=== PATIENT | female | born 1955 | race Caucasian/White ===

== ENCOUNTER 2021-02-26 09:26 | Inpatient (IN) | payer OTHER ==
[~2021-02-26] VITALS: Ht 172.7 cm; Wt 78.0 kg
[~2021-02-26 09:26] MED LIST: AMLO-489 PO; BUPR-160 PO; CHOL200010 PO; CHON150C PO; DONE5TAB80 PO; GLUC1TAB22 PO; LANS30CA57 PO; MAGN400S25 PO; MAGN400T40 PO; OMEG100078 PO; RALO60TA13 PO
[2021-02-26] MEDS ORDERED: SODIUM CHLORIDE 0.9% 1,000 ML IV ONE (12:00)
[2021-02-26] MEDS ORDERED: KETOROLAC TROMETH 30 MG/ML 1ML VIAL IV ONE (12:00)
[2021-02-26 12:29] LABS: Albumin 4.5 g/dL (3.4-5.0); Calcium 9.6 mg/dL (8.5-10.1); Potassium 3.4 mmol/L (3.5-5.1)
[2021-02-26 12:33] LABS: BUN/Creatinine Ratio 16.5; Bilirubin, Total 0.7 mg/dL (0.2-1.0); INR 0.97 (0.9-1.15); Partial Thromboplastin Time 26.5 sec (23.6-33.0); Total Protein 7.8 g/dL (6.4-8.2)
[2021-02-26 12:41] LABS: Basophils # (auto) 0 10 ^3/uL (0-0.2); Basophils % (auto) 0.5 % (0.0-2.0); Eosinophils # (auto) 0.1 10 ^3/uL (0-0.8); Eosinophils % (auto) 1.4 % (0.0-7.0); Hematocrit 47.8 % (36.0-46.0); Lymphocytes # (auto) 1.3 10 ^3/uL (0.4-5.4); Lymphocytes % (auto) 12.1 % (10.0-50.0); Mean Corpuscular Hemoglobin 29.2 pg (28.0-32.0); Mean Corpuscular Hgb Conc. 33.5 g/dL (32.0-36.0); Monocytes # (auto) 0.6 10 ^3/uL (0-1.3); Monocytes % (auto) 6.2 % (0.0-12.0); Neutrophils # (auto) 8.3 10 ^3/uL (1.6-8.6); Neutrophils % (auto) 79.8 % (37.0-80.0); Red Blood Cells 5.49 10^6/uL (4.0-5.20); Red Cell Distribution Width 13.3 % (11.8-14.3); White Blood Cell 10.4 10^3/uL (4.4-10.8)
[2021-02-26 12:42] LABS: Nucleated Red Blood Cells % 0.1 %
[2021-02-26] MEDS ORDERED: POTASSIUM EFFERVESENT TAB 25 MEQ PO ONE (12:45)
[2021-02-26] MEDS ORDERED: metroNIDAZOLE 500MG/100ML 100 ML IV ONE (12:45)
[2021-02-26] MEDS ORDERED: cefTRIAXone 1GM/50ML D5W 50 ML IV ONE (12:45)
[2021-02-26] MEDS ORDERED: MORPHINE SULFATE 4 MG/ML SYR/VIAL IV PRN (15:45)
[2021-02-26] MEDS ORDERED: HYDROcodone-ACET 5/325MG TAB PO PRN (15:45)
[2021-02-26] MEDS ORDERED: MORPHINE SULFATE INJECTION 2 MG/ML SYRG IV PRN (15:45)
[2021-02-26] MEDS ORDERED: ONDANSETRON HCL 4 MG/2 ML VIAL IV PRN (15:45)
[2021-02-26] MEDS ORDERED: NITROGLYCERIN 0.4 MG SL TAB SL PRN (15:45)
[2021-02-26] MEDS ORDERED: ACETAMINOPHEN 325 MG TAB PO PRN (15:45)
[2021-02-26] MEDS: PNEUMOCOCCAL VACC POLYS 25 MCG/0.5 ML VIAL IM ONE (17:45)
[2021-02-26] MEDS: PIPERACILLIN-TAZOB 3.375GM 100 ML IV SCH (18:13)
[2021-02-26 21:57] VITALS: BP 127/74
[2021-02-27] MEDS: PIPERACILLIN-TAZOB 3.375GM 100 ML IV SCH ×3 (00:01→11:59)
[2021-02-27 05:55] VITALS: BP 118/63
[2021-02-27 06:45] LABS: Basophils # (auto) 0.1 10 ^3/uL (0-0.2); Basophils % (auto) 0.7 % (0.0-2.0); Eosinophils # (auto) 0.2 10 ^3/uL (0-0.8); Eosinophils % (auto) 2.3 % (0.0-7.0); Hematocrit 40.1 % (36.0-46.0); Hemoglobin 13.9 g/dL (12.2-16.2); Lymphocytes # (auto) 1.2 10 ^3/uL (0.4-5.4); Lymphocytes % (auto) 16.1 % (10.0-50.0); Mean Corpuscular Hemoglobin 29.7 pg (28.0-32.0); Mean Corpuscular Hgb Conc. 34.8 g/dL (32.0-36.0); Mean Corpuscular Volume 85.4 fL (80.0-100.0); Monocytes # (auto) 0.7 10 ^3/uL (0-1.3); Monocytes % (auto) 9.3 % (0.0-12.0); Neutrophils # (auto) 5.3 10 ^3/uL (1.6-8.6); Neutrophils % (auto) 71.6 % (37.0-80.0); Red Blood Cells 4.69 10^6/uL (4.0-5.20); Red Cell Distribution Width 13.7 % (11.8-14.3); White Blood Cell 7.4 10^3/uL (4.4-10.8)
[2021-02-27 06:48] LABS: Albumin 3.6 g/dL (3.4-5.0); BUN/Creatinine Ratio 19.4; Calcium 8.8 mg/dL (8.5-10.1); Potassium 3.7 mmol/L (3.5-5.1)
[2021-02-27 06:51] LABS: Bilirubin, Total 0.7 mg/dL (0.2-1.0); Total Protein 6.1 g/dL (6.4-8.2)
[2021-02-27 08:15] VITALS: BP_SYST 125; BP_SYST 140; BP_DIAS 58; BP_DIAS 92
[2021-02-27 09:00] VITALS: BP 125/92
[2021-02-27] MEDS ORDERED: ENOXAPARIN SOD 40 MG/0.4 ML SYRINGE SC SCH (10:00)
[2021-02-27 12:50] VITALS: BP 148/88
[2021-02-27] MEDS: PNEUMOCOCCAL VACC POLYS 25 MCG/0.5 ML VIAL IM ONE (15:30)
[2021-02-27] MEDS ORDERED: PNEUMOCOCCAL VACC POLYS 25 MCG/0.5 ML VIAL IM ONE (15:30)
== END 2021-02-27 15:40 | disposition home or self-care (01) | DRG 392 ==
LOC: ER 09:26 → TELE 15:56 → TELE-WESTW 17:32
PROVIDERS: ADMIT Internal Medicine; ATTEND Internal Medicine
PROC: 3E0234Z Introduction of Serum, Toxoid and Vaccine into Muscle, Percutaneous Approach (ICD-10-PCS; principal; 2021-02-27)
DX: K57.32 Diverticulitis of large intestine without perforation or abscess without bleeding (principal); K62.5 Hemorrhage of anus and rectum; E87.6 Hypokalemia; I10 Essential (primary) hypertension; Z87.11 Personal history of peptic ulcer disease; F32.A Depression, unspecified; K21.9 Gastro-esophageal reflux disease without esophagitis; Z20.822 Contact with and (suspected) exposure to COVID-19; Z23 Encounter for immunization
CPT/HCPCS: 36415; 74176; 80053; 83605; 84484; 85025; 85610; 85730; 87040; 87426; 93005; 96365; 96375; 97163; G0378; J0696; J1885; J2543; J3490